=== PATIENT | female | born 1935 | race African-American/Black ===

== ENCOUNTER 2018-02-26 13:46 | Inpatient (IN) | payer MEDICARE, MEDICAID ==
[~2018-02-26] VITALS: Ht 170.2 cm; Wt 88.9 kg
[2018-02-26] MEDS ORDERED: IV NS 0.9% 500 ML BAG IV ONE (14:00)
[2018-02-26 14:12] LABS: BASOPHILS # (AUTO) 0.1 /CMM (0.0-0.2); BASOPHILS % (AUTO) 1.3 % (0.0-2.0); HEMATOCRIT 37 % (33-45); HEMOGLOBIN 12.6 g/dL (11.5-14.8); LYMPHOCYTES # (AUTO) 2.4 /CMM (0.8-4.8); LYMPHOCYTES % (AUTO) 36.2 % (20.0-44.0); MEAN CORPUSCULAR HGB CONC 34 g/dl (31.0-36.0); MEAN CORPUSCULAR VOLUME 87 fL (82-100); MONOCYTES # (AUTO) 0.3 /CMM (0.1-1.30); MONOCYTES % (AUTO) 4.6 % (2.0-12.0); NEUTROPHILS # (AUTO) 3.7 /CMM (1.8-8.9); NEUTROPHILS % (AUTO) 55.9 % (43.0-81.0); PLATELET COUNT (AUTO) 219 /CMM (150-450); RDW COEFFICIENT OF VARIATION 13.9 (11.5-15.0); RED BLOOD CELL COUNT(AUTO) 4.22 MIL/uL (4.0-5.2); WHITE BLOOD COUNT (AUTO) 6.6 K/uL (4.3-11.0)
[2018-02-26] MEDS ORDERED: BLOO-668 IN (14:18)
[2018-02-26] MEDS ORDERED: CLON0.5T PO (14:18)
[2018-02-26] MEDS ORDERED: AMLO5TAB7 PO (14:18)
[2018-02-26] MEDS ORDERED: BENZ1TAB7 PO (14:18)
[2018-02-26] MEDS ORDERED: LEVO25TA9 PO (14:18)
[2018-02-26] MEDS ORDERED: DOCU-141 PO (14:18)
[2018-02-26] MEDS ORDERED: ACET-868 PO (14:18)
[2018-02-26] MEDS ORDERED: LATA2.5D7 EACHEYE (14:18)
[2018-02-26] MEDS ORDERED: GLIP10TA11 PO (14:18)
[2018-02-26] MEDS ORDERED: PANT40TA2 PO (14:18)
[2018-02-26] MEDS ORDERED: METF-440 PO (14:18)
[2018-02-26] MEDS ORDERED: HALO2TAB PO (14:18)
[2018-02-26] MEDS ORDERED: SITA50TA PO (14:18)
[2018-02-26] MEDS ORDERED: DIVA-78 PO (14:18)
[2018-02-26] MEDS ORDERED: ASPI-1169 PO (14:18)
[2018-02-26] MEDS ORDERED: IV NS 0.9% 1,000 ML IV PRN ×2 (14:20→15:30)
[2018-02-26 14:22] LABS: CALCIUM, SERUM 9.2 mg/dL (8.5-10.1); CARBON DIOXIDE 26 mmol/L (21-32); CHLORIDE 103 mmol/L (98-107); CREATININE 1.2 mg/dL (0.6-1.3); GLUCOSE 245 mg/dL (74-106); POTASSIUM 4.1 mmol/L (3.5-5.1); SODIUM SERUM 135 mmol/L (136-145); UREA NITROGEN, BLOOD 22 mg/dL (7-18)
[2018-02-26] MEDS ORDERED: INSU100V11 SQ (14:22)
[2018-02-26 14:26] LABS: INR 0.96 (0.85-1.15)
[2018-02-26 14:29] LABS: ALANINE AMINOTRANSFERASE 14 U/L (12-78); ALBUMIN 3.2 g/dL (3.4-5.0); ALKALINE PHOSPHATASE 56 U/L (46-116); ASPARTATE AMINOTRANSFERASE 16 U/L (15-37); BILIRUBIN,TOTAL 0.2 mg/dL (0.2-1.0); TOTAL PROTEIN, SERUM 7.6 g/dL (6.4-8.2)
[2018-02-26 14:30] LABS: TROPONIN I < 0.017 ng/mL (0.00-0.056)
[2018-02-26] MEDS ORDERED: MAG HYDROX/AL HYDROX/SIMETH 30 ML UDC PO PRN ×2 (14:30→15:30)
[2018-02-26] MEDS ORDERED: ACETAMINOPHEN 325 MG TABLET PO PRN ×2 (14:30→15:30)
[2018-02-26] MEDS ORDERED: ONDANSETRON HCL/PF 4 MG/2 ML VIAL IVP PRN ×2 (14:30→15:30)
[2018-02-26] MEDS ORDERED: ZOLPIDEM TARTRATE 5 MG TABLET PO PRN ×2 (14:30→15:30)
[2018-02-26] MEDS ORDERED: Z GUARD REMEDY 2 OZ OINT TP PRN ×2 (14:30→15:30)
[2018-02-26] MEDS ORDERED: MAGNESIUM HYDROXIDE 30 ML UDC PO PRN ×2 (14:30→15:30)
[2018-02-26] MEDS ORDERED: DEXTROSE 50%-WATER 50 ML DISP.SYRIN IV PRN ×2 (14:30→15:30)
[2018-02-26] MEDS ORDERED: HYDROCODONE/APAP 5/325MG 1 EACH TABLET PO PRN ×2 (14:30→15:30)
[2018-02-26] MEDS ORDERED: INSULIN REGULAR, HUMAN 100 UNIT/ML 3 ML VIAL SQ PRN (14:30)
[2018-02-26] MEDS ORDERED: *INSULIN REGULAR(HUMULIN R)HUM 100 UNIT/ML VIAL SQ PRN (14:30)
--- NOTE | 2018-02-26 14:35 | NUR ---
CALLED NURSING [facility]GET[facility] AND REQUESTED A MED SURG BED FOR THIS PT.
--- NOTE | 2018-02-26 14:46 | NUR ---
AT [facility]
--- NOTE | 2018-02-26 14:46 | NUR ---
URINE SAMPLE OBTAINED, SENT.
[2018-02-26 14:52] LABS: APPEARANCE,URINE Clear (CLEAR); BILIRUBIN,URINE Negative (NEGATIVE); BLOOD, URINE Negative Ery/uL (NEGATIVE); COLOR,URINE Yellow (YELLOW); KETONES,URINE Negative (NEGATIVE); LEUKOCYTE ESTERASE ,URINE Negative (NEGATIVE); NITRITE, URINE Negative (NEGATIVE); PROTEIN,URINE Negative (NEGATIVE); UGLUCOSE Negative (NEGATIVE); UROBILINOGEN,URINE 0.2 EU/dL (0.2)
[2018-02-26 15:00] VITALS: BP 146/76
--- NOTE | 2018-02-26 15:18 | NUR ---
PT IS ASSIGNED TO MED SURG RM#: [id number], PT IS DIAGNOSED WITH ALTERED MENTAL STATUS, AND DR PEREZ IS THE ACCEPTING MD.
--- NOTE | 2018-02-26 15:20 | NUR ---
REPORT GIVEN TO SYBIL MOY FOR MS 203.
--- NOTE | 2018-02-26 15:40 | NUR ---
MS/laborer/grade check Patient admitted from emergency room with diagnose of generalized weakness and increased confusion. Patient fully admitted, admitting orders noted and carried out. Medications administered as ordered, no difficulty swallowing, refusing to be connected at IV fluids at this time. Safety measures in place, side rails X3 in upright position, bed alarm switched on, call light within reach, will continue to monitor and ensure safety.
[2018-02-26] MEDS: BENZTROPINE MESYLATE (1 MG) 1 MG TABLET PO SCH (16:18)
[2018-02-26] MEDS: clonazePAM 0.5 MG TABLET PO SCH (16:18)
[2018-02-26] MEDS: BLOOD SUGAR DIAGNOSTIC 1 EACH STRIP VI SCH ×2 (16:19→21:11)
[2018-02-26] MEDS: AMLODIPINE BESYLATE 5 MG TABLET PO SCH (16:19)
[2018-02-26] MEDS: HALOPERIDOL 1 MG TABLET PO SCH (16:21)
[2018-02-26 16:52] VITALS: BP 146/76
--- NOTE | 2018-02-26 17:15 | NUR ---
MS/RN Blood sugar Blood sugar at 5p - 217, unable to administer insulin at this time as not available. Will contact pharmacy.
[2018-02-26] MEDS ORDERED: BLOOD SUGAR DIAGNOSTIC 1 EACH STRIP VI SCH (17:30)
--- NOTE | 2018-02-26 18:30 | NUR ---
MS/RN End note Patient remains in stable condition, all needs attended. Will endorse to night stocker.
[2018-02-26] MEDS: DOCUSATE SODIUM 100 MG CAPSULE PO SCH (21:10)
[2018-02-26] MEDS: DIVALPROEX SODIUM 500 MG TABLET.DR PO SCH (21:10)
[2018-02-26] MEDS: LATANOPROST EYE DROP 0.005% 2.5 ML BOTTLE EACHEYE SCH (21:11)
[2018-02-26] MEDS: *INSULIN REGULAR(HUMULIN R)HUM 100 UNIT/ML VIAL SQ PRN (21:21)
[2018-02-26 21:44] VITALS: BP 129/71
--- NOTE | 2018-02-27 06:30 | NUR ---
MS RN NOTES AWAKE & RESPONSIVE. NOT IN ANY DISTRESS. NO SOB NOTED. DENIES ANY PAIN OR DISCOMFORT AT THIS TIME. WITH IV-HL PATENT & INTACT. AM CARE DONE. MONITORED ACCORDINGLY. CALL LIGHT WITHIN REACH. BED IN LOWEST POSITION. SR UP X3 WITH BED ALARM ON FOR SAFETY. WILL ENDORSE TO NEXT SHIFT.
--- NOTE | 2018-02-27 07:30 | NUR ---
RN OPENING NOTES RECEIVED PATIENT AWAKE & RESPONSIVE. NOT IN ANY DISTRESS. NO SOB NOTED. DENIES ANY PAIN OR DISCOMFORT AT THIS TIME. WITH IV-HL PATENT & INTACT, NOTED PATIENT REFUSED TO BE CONNECTED TO IVF AT THIS TIME. CALL LIGHT WITHIN REACH. BED IN LOWEST POSITION. SR UP X3 WITH BED ALARM ON FOR SAFETY. WILL CONTINUE TO MONITOR ACCORDINGLY.
[2018-02-27] MEDS: BLOOD SUGAR DIAGNOSTIC 1 EACH STRIP VI SCH ×4 (07:33→21:54)
[2018-02-27 08:00] VITALS: BP 137/73
[2018-02-27] MEDS: BENZTROPINE MESYLATE (1 MG) 1 MG TABLET PO SCH ×3 (09:01→16:38)
[2018-02-27] MEDS: DIVALPROEX SODIUM 500 MG TABLET.DR PO SCH ×2 (09:02→21:54)
[2018-02-27] MEDS: LEVOTHYROXINE SODIUM 25 MCG TABLET PO SCH (09:02)
[2018-02-27] MEDS: ASPIRIN 81 MG TAB.CHEW PO SCH (09:02)
[2018-02-27] MEDS: AMLODIPINE BESYLATE 5 MG TABLET PO SCH ×2 (09:02→16:41)
[2018-02-27] MEDS: PANTOPRAZOLE 40 MG TABLET.DR PO SCH (09:02)
[2018-02-27] MEDS: clonazePAM 0.5 MG TABLET PO SCH ×3 (09:03→16:39)
[2018-02-27] MEDS: HALOPERIDOL 1 MG TABLET PO SCH ×2 (09:03→16:40)
--- NOTE | 2018-02-27 09:32 | NUR ---
WOUND CARE CONSULT: PT FOLLOWED BY SURGICAL TEAM. DEFER TO SURGICAL TEAM FOR WOUND TREATMENT PLAN. ALL SKIN PROTECTION AND PRESSURE ULCER PREVENTION MEASURES IN PLACE AND DISCUSSED WITH NURSING STAFF. Addendum: 02/27/18 at 0942 by JOSE M ELLINGTON [facility]
[2018-02-27 10:18] LABS: BASOPHILS % (AUTO) 0.4 % (0.0-2.0); EOSINOPHILS % (AUTO) 2.9 % (0.0-6.0); HEMATOCRIT 35 % (33-45); HEMOGLOBIN 11.9 g/dL (11.5-14.8); LYMPHOCYTES # (AUTO) 2.5 /CMM (0.8-4.8); LYMPHOCYTES % (AUTO) 44.3 % (20.0-44.0); MEAN CORPUSCULAR HGB CONC 34 g/dl (31.0-36.0); MEAN CORPUSCULAR VOLUME 88 fL (82-100); MONOCYTES # (AUTO) 0.3 /CMM (0.1-1.30); MONOCYTES % (AUTO) 5.7 % (2.0-12.0); NEUTROPHILS # (AUTO) 2.6 /CMM (1.8-8.9); NEUTROPHILS % (AUTO) 46.7 % (43.0-81.0); PLATELET COUNT (AUTO) 203 /CMM (150-450); RDW COEFFICIENT OF VARIATION 14.9 (11.5-15.0); RED BLOOD CELL COUNT(AUTO) 4.03 MIL/uL (4.0-5.2); WHITE BLOOD COUNT (AUTO) 5.6 K/uL (4.3-11.0)
[2018-02-27 10:46] LABS: CHOLESTEROL 167 mg/dL (<200); HDL CHOLESTEROL 59 mg/dL (40-60); LDL 94 mg/dL (0-99); TRIGLYCERIDES 91 mg/dL (30-150)
[2018-02-27 13:27] LABS: VALPROIC ACID 38 ug/mL (50-100)
[2018-02-27] MEDS: INSULIN REGULAR, HUMAN 100 UNIT/ML 3 ML VIAL SQ PRN ×2 (13:45→16:59)
[2018-02-27 13:46] LABS: ALANINE AMINOTRANSFERASE 14 U/L (12-78); ALBUMIN 2.9 g/dL (3.4-5.0); ALKALINE PHOSPHATASE 50 U/L (46-116); ASPARTATE AMINOTRANSFERASE 13 U/L (15-37); BILIRUBIN,TOTAL 0.2 mg/dL (0.2-1.0); CALCIUM, SERUM 9.2 mg/dL (8.5-10.1); CARBON DIOXIDE 25 mmol/L (21-32); CHLORIDE 105 mmol/L (98-107); CREATININE 1.2 mg/dL (0.6-1.3); GLUCOSE 294 mg/dL (74-106); MAGNESIUM 1.9 mg/dL (1.8-2.4); POTASSIUM 4.1 mmol/L (3.5-5.1); SODIUM SERUM 140 mmol/L (136-145); TOTAL PROTEIN, SERUM 6.9 g/dL (6.4-8.2); UREA NITROGEN, BLOOD 21 mg/dL (7-18)
[2018-02-27 16:00] VITALS: BP 127/69
--- NOTE | 2018-02-27 17:00 | NUR ---
RN NOTES KLONOPIN 0.25MG WASTED PARTIAL DOSE WITNESSED BY FARZANEH PETERSON
--- NOTE | 2018-02-27 17:32 | NUR ---
Patient resides at [facility] [phone].She requires mod-max assist with adl's.On 7 days bedhold. Will dc back top [facility] when discharge Addendum: 02/27/18 at 1733 by LUBA TENORIO RN Amended: Links added.
--- NOTE | 2018-02-27 19:23 | NUR ---
RN CLOSING NOTES PATIENT IN STABLE CONDITION. ALL NEEDS ATTENDED AND PROVIDED. KEPT PATIENT SAFE AND COMFORTABLE. TURNED AND REPOSITIONED PATIENT EVERY 2HRS NEEDED. BED IN LOW/LOCKED POSITION, SIDERAILS UPX2, CALL LIGHT IN REACH. ENDORSED TO NIGHT RN FOR ZAID.
--- NOTE | 2018-02-27 19:45 | NUR ---
MS RN NOTE: PATIENT RESTING IN BED, NO ACUTE DISTRESS NOTED. BREATHING EVEN AND UNLABORED, NO SOB NOTED. IV TO RAC IN PLACE. NO S/S OF HYPER/HYPOGLYCEMIA NOTED. BED LOCKED AND IN LOWEST POSITION, CALL LIGHT IN REACH. WILL CONTINUE TO MONITOR.
[2018-02-27 20:00] VITALS: BP 139/68
[2018-02-27] MEDS: DOCUSATE SODIUM 100 MG CAPSULE PO SCH (21:54)
[2018-02-27] MEDS: LATANOPROST EYE DROP 0.005% 2.5 ML BOTTLE EACHEYE SCH (21:54)
[2018-02-27] MEDS: *INSULIN REGULAR(HUMULIN R)HUM 100 UNIT/ML VIAL SQ PRN (21:59)
--- NOTE | 2018-02-27 22:15 | NUR ---
MS RN NOTE: PATIENT BLOOD SUGAR LEVEL 252MG/DL, PATIENT TO RECEIVE 6 UNITS PER SLIDING SCALE. NO S/S OF HYPER/HYPOGLYCEMIA NOTED. WILL CONTINUE TO MONITOR.
--- NOTE | 2018-02-28 06:30 | NUR ---
MS RN NOTE: PATIENT RESTING IN BED, NO ACUTE DISTRESS NOTED. BREATHING EVEN AND UNLABORED, NO SOB NOTED. IV TO RAC IN PLACE. PATIENT BLOOD SUGAR LEVEL 129MG/DL, NO INSULIN NEEDED PER SLIDING SCALE. NO S/S OF HYPER/HYPOGLYCEMIA NOTED. BED LOCKED AND IN LOWEST POSITION, CALL LIGHT IN REACH. WILL ENDORSE TO DAY NURSE TO CONTINUE WITH PLAN OF CARE.
[2018-02-28 06:40] LABS: BASOPHILS % (AUTO) 0.5 % (0.0-2.0); EOSINOPHILS % (AUTO) 3.3 % (0.0-6.0); HEMATOCRIT 36 % (33-45); HEMOGLOBIN 11.9 g/dL (11.5-14.8); LYMPHOCYTES % (AUTO) 47.9 % (20.0-44.0); MEAN CORPUSCULAR HGB CONC 33 g/dl (31.0-36.0); MEAN CORPUSCULAR VOLUME 88 fL (82-100); MONOCYTES # (AUTO) 0.5 /CMM (0.1-1.30); MONOCYTES % (AUTO) 7.3 % (2.0-12.0); NEUTROPHILS # (AUTO) 2.6 /CMM (1.8-8.9); PLATELET COUNT (AUTO) 186 /CMM (150-450); RDW COEFFICIENT OF VARIATION 15.2 (11.5-15.0); RED BLOOD CELL COUNT(AUTO) 4.05 MIL/uL (4.0-5.2); WHITE BLOOD COUNT (AUTO) 6.2 K/uL (4.3-11.0)
[2018-02-28 06:41] LABS: CALCIUM, SERUM 8.6 mg/dL (8.5-10.1); CARBON DIOXIDE 28 mmol/L (21-32); CHLORIDE 108 mmol/L (98-107); CREATININE 1.1 mg/dL (0.6-1.3); GLUCOSE 141 mg/dL (74-106); MAGNESIUM 1.9 mg/dL (1.8-2.4); PHOSPHORUS 3.3 mg/dL (2.5-4.9); POTASSIUM 4.2 mmol/L (3.5-5.1); SODIUM SERUM 143 mmol/L (136-145); UREA NITROGEN, BLOOD 22 mg/dL (7-18)
[2018-02-28] MEDS: BLOOD SUGAR DIAGNOSTIC 1 EACH STRIP VI SCH ×4 (06:56→21:07)
--- NOTE | 2018-02-28 07:26 | NUR ---
MS RN OPENING NOTES RECEIVED PT FROM NIGHTSHIFT NURSE IN STABLE CONDITION. PT IS A/O X3 (DATE, NAME, PLACE). NO SOB OR SIGNS OF DISTRESS NOTED. BREATHING IS EVEN AND UNLABORED. PT ON RA AND SATING WELL @99%. IV TO RIGHT AC NOTED TO BE PATENT AND INTACT. NO REDNESS OR SIGNS OF INFILTRATION NOTED. PT CONTINUES TO REFUSE NS INFUSION. BED IN LOW LOCKED POSITION, SIDE RAILS UP X2, CALL LIGHT WITHIN REACH, BED ALARM ON. WILL CONTINUE TO MONITOR
[2018-02-28 08:00] VITALS: BP 140/68
[2018-02-28] MEDS: PANTOPRAZOLE 40 MG TABLET.DR PO SCH (08:44)
[2018-02-28] MEDS: AMLODIPINE BESYLATE 5 MG TABLET PO SCH ×2 (08:44→17:45)
[2018-02-28] MEDS: LEVOTHYROXINE SODIUM 25 MCG TABLET PO SCH (08:44)
[2018-02-28] MEDS: HALOPERIDOL 1 MG TABLET PO SCH ×2 (08:44→17:45)
[2018-02-28] MEDS: BENZTROPINE MESYLATE (1 MG) 1 MG TABLET PO SCH ×3 (08:45→17:45)
[2018-02-28] MEDS: ASPIRIN 81 MG TAB.CHEW PO SCH (08:45)
[2018-02-28] MEDS: clonazePAM 0.5 MG TABLET PO SCH ×3 (08:45→17:45)
[2018-02-28] MEDS: DIVALPROEX SODIUM 500 MG TABLET.DR PO SCH ×2 (08:45→21:06)
[2018-02-28] MEDS: INSULIN REGULAR, HUMAN 100 UNIT/ML 3 ML VIAL SQ PRN ×3 (12:36→21:19)
--- NOTE | 2018-02-28 12:39 | NUR ---
BLOOD SUGAR OF 229, 6 UNITS REGULAR INSULIN GIVEN, ALDO MOY UPDATED
[2018-02-28 16:00] VITALS: BP 130/56
--- NOTE | 2018-02-28 17:07 | NUR ---
MS MOYWOOL SAMPLER NOTES PT WAS DISCHARGED FROM FACILITY IN STABLE CONDITION. ALL NEEDS WERE MET DURING SHIFT AND ORDERS CARRIED OUT ACCORDINGLY. ALL DUE MEDS GIVEN. IV SUCCESSFULLY REMOVED WITH NO COMPLICATIONS. NUCLEAR MED RESULTS REVIEWED WITH MD PRIOR TO D/C. PRESCRIPTIONS REVIEWED WITH PT AND FAMILY ALONG WITH ALL DISCHARGE INSTRUCTIONS. CASE MANAGEMENT MADE AWARE THAT PT WILL NEED A F/U APPOINTMENT WITH DR. PEREZ FOR FRIDAY HOWEVER SHE AWAY FROM HER OFFICE AND UNABLE TO PROVIDE PAPERWORK. A NUMBER WAS PROVIDED TO TO CALL THE PT AND GIVE HER THE DETAILS TO HER F/U APPOINTMENT. PT AND SON VERBALIZED UNDERSTANDING OF ALL D/C INSTRUCTIONS AND SIGNED ALL PAPERWORK. SHE WAS SAFELY ESCORTED TO THE MAIN LOBBY BY THE AMPOULE WASHING MACHINE OPERATOR AND LEFT VIA PRIVATE VEHICLE. Addendum: 02/28/18 at 1721 by ALDO SAGASTUME RN PLEASE DISREGARD THIS NOTE IT WAS MEANT FOR ANOTHER PT
--- NOTE | 2018-02-28 19:29 | NUR ---
MS RN CLOSING NOES PT REMAINS STABLE. NO ACUTE CHANGES IN MENTATION THROUGHOUT SHIFT. SHE REMAINS A/O X3. IV REMAINS PATENT AND INTACT. WOUND AND SKIN CARE RENDERED. SAFETY MEASURES REMAIN IN PLACE. WILL ENDORSE TO NIGHTSHIFT NURSE FOR ZAID
--- NOTE | 2018-02-28 19:30 | NUR ---
MS RN NOTES RECEIVED ON BED A/O X2-3,WITH PERIODS OF CONFUSION,FORGETFUL.SALINE LOCK RIGHT C INTACT AND PATENT,INFUSING NS 75ML/HR RATE,SITE PATENT.FALL PRECAUTION OBSERVED,BED ON LOWEST POSITION AND LOCK,CALL LIGHT IN REACH,NEEDS ANTICIPATED.
[2018-02-28 20:00] VITALS: BP 140/81
--- NOTE | 2018-02-28 21:00 | NUR ---
MS RN NOTES DUE PO MEDS GIVEN SCHEDULED,TAKEN WELL.NEGATIVE FOR ASPIRATION
[2018-02-28] MEDS: LATANOPROST EYE DROP 0.005% 2.5 ML BOTTLE EACHEYE SCH (21:06)
[2018-02-28] MEDS: DOCUSATE SODIUM 100 MG CAPSULE PO SCH (21:07)
--- NOTE | 2018-02-28 21:30 | NUR ---
MS RN NOTES ACCU-CHECK BLOOD SUGAR CHECK 150,COVERED WITH HUMULIN R 2 UNITS PER SLIDING SCALE.
[2018-02-28] MEDS: *INSULIN REGULAR(HUMULIN R)HUM 100 UNIT/ML VIAL SQ PRN (22:18)
--- NOTE | 2018-03-01 03:00 | NUR ---
MS RN NOTES SOUND ASLEEP,KEPT WARM AND COMFORTABLE.
--- NOTE | 2018-03-01 06:30 | NUR ---
MS RN NOTES ACCU-CHECK BLOOD SUGAR CHECK 144,COVERED WITH HUMULIN R 2 UNITS PER SLIDING GIVEN SQ ON RIGHT DELTOID
[2018-03-01] MEDS: BLOOD SUGAR DIAGNOSTIC 1 EACH STRIP VI SCH ×2 (06:33→12:02)
[2018-03-01] MEDS: INSULIN REGULAR, HUMAN 100 UNIT/ML 3 ML VIAL SQ PRN ×2 (06:38→12:15)
--- NOTE | 2018-03-01 06:52 | NUR ---
MS RN NOTES NO SIGNIFICANT CHANGE IN STATUS.A.O X1-2.FORGETFUL,COMPLIANT WITH MEDS AND CARE.NO FALL,NO INJURY,CALL LIGHT IN REACH,NEEDS ATTENDED.WILL ENDORSE TO RINKU MOY FOR ZAID.
--- NOTE | 2018-03-01 07:00 | NUR ---
MSRN NOTES. PT RECEIVED A&0X2, TOLERATING ROOM AIR WITH S/S OF RESP DISTRESS. PT DENIES PAIN AND IS WITHOUT S/S OF DISTRESS OR DISCOMFORT. PT WITH IVC AT L AC INTACT AND OPERATIONAL. PT BED IN LOWEST LOCKED POSITION AND PT REQUESTED TO CALL BEFORE AMBULATION, BED ALARM ENGAGED. PT BRIEFED ON TODAY'S POC AND IS WITHOUT CONCERN OR COMPLAINT. Addendum: 03/01/18 at 0742 by RINKU SANDERSON RN TOLERATING ROOM AIR WITHOUT S/S OF RESP DISTRESS
[2018-03-01 08:00] VITALS: BP 145/72
[2018-03-01] MEDS: BENZTROPINE MESYLATE (1 MG) 1 MG TABLET PO SCH ×2 (08:19→12:02)
[2018-03-01] MEDS: PANTOPRAZOLE 40 MG TABLET.DR PO SCH (08:20)
[2018-03-01] MEDS: DIVALPROEX SODIUM 500 MG TABLET.DR PO SCH (08:20)
[2018-03-01] MEDS: clonazePAM 0.5 MG TABLET PO SCH ×2 (08:20→12:02)
[2018-03-01] MEDS: ASPIRIN 81 MG TAB.CHEW PO SCH (08:20)
[2018-03-01 08:21] VITALS: BP 145/72
[2018-03-01] MEDS: AMLODIPINE BESYLATE 5 MG TABLET PO SCH (08:21)
[2018-03-01] MEDS: LEVOTHYROXINE SODIUM 25 MCG TABLET PO SCH (08:21)
[2018-03-01] MEDS: HALOPERIDOL 1 MG TABLET PO SCH (08:22)
--- NOTE | 2018-03-01 14:00 | NUR ---
MSRN D/C NOTES. PT PREPARED FOR D/C PER MD. PT TOLERATING ROOM AIR WITHOUT RESP DISTRESS AND DENIES PAIN. IVC REMOVED AND NAD AT SITE. PT BRIEFED ON SO D/C PACKET BUT FURTHER EDUCATION WILL BE REQUIRED, D/C SIGNED BY RNX2. PT WITH ALL BELONGINGS AND DOCUMENT SIGNED BY RNX2. PT ENDORSED TO [facility]UB[facility] AT [facility]. PT LEFT WITH ALL BELONGINGS AND WITHOUT CONCERN OR COMPLAINT WITH EMT TRANSPORT CREW.
== END 2018-03-01 14:00 | DRG 682 ==
LOC: ER 13:53 → MEDSG2 15:36
PROVIDERS: ADMIT Internal Medicine; ATTEND Internal Medicine
DX: N17.0 Acute kidney failure with tubular necrosis (principal); G93.41 Metabolic encephalopathy; I50.33 Acute on chronic diastolic (congestive) heart failure; J81.1 Chronic pulmonary edema; E87.1 Hypo-osmolality and hyponatremia; I11.0 Hypertensive heart disease with heart failure; H40.9 Unspecified glaucoma; K21.9 Gastro-esophageal reflux disease without esophagitis; J44.9 Chronic obstructive pulmonary disease, unspecified; Z86.73 Personal history of transient ischemic attack (TIA), and cerebral infarction without residual deficits; Z79.899 Other long term (current) drug therapy; Z79.84 Long term (current) use of oral hypoglycemic drugs; Z79.82 Long term (current) use of aspirin; E03.9 Hypothyroidism, unspecified; E11.9 Type 2 diabetes mellitus without complications; M19.90 Unspecified osteoarthritis, unspecified site; R26.81 Unsteadiness on feet; Z88.0 Allergy status to penicillin; Z91.018 Allergy to other foods; Z79.4 Long term (current) use of insulin; E66.9 Obesity, unspecified; F31.9 Bipolar disorder, unspecified; L98.9 Disorder of the skin and subcutaneous tissue, unspecified; E86.0 Dehydration; F03.90 Unspecified dementia, unspecified severity, without behavioral disturbance, psychotic disturbance, mood disturbance, and anxiety; Z68.31 Body mass index [BMI] 31.0-31.9, adult
CPT/HCPCS: 36415; 70450-TC; 71045-TC; 80048-TC; 80053-TC; 80061-TC; 80076-TC; 80164-TC; 81000-TC; 82962-TC; 83605-TC; 83735-TC; 84100-TC; 84484-TC; 85025-TC; 85730-TC; 87040-TC; 87081-TC; 87086-TC; 93307-TC; 93880-TC; A4606; J1815; J7030; J7040; Z7610